=== PATIENT | female | born 1995 | race American Indian/Alaskan Native ===

== ENCOUNTER 2017-03-10 08:49 | Emergency (ER) | payer BC ==
[2017-03-10 09:00] VITALS: BP 103/66
--- NOTE | 2017-03-10 10:21 | Emergency Department Report ---
Entered by ANDRE GOVEA, acting as scribe for CHARLEY JOHNSON PA. ED Lower Extremity HPI - General Chief Complaint: Extremity Injury, Lower Stated Complaint: LT KINEE PAIN/SOB Source: patient Mode of arrival: Ambulatory Limitations: No Limitations - History of Present Illness Initial Comments: 22 year old female with no significant PMHx presents to the ED c/o left knee pain that began last night. Patient states that she felt her knee pop out place last night, and she woke up this morning with left knee soreness. Rates pain a 6 /10. Pain worsens with bending the knee. She reports taking Tylenol Extra Strength x 2 yesterday with mild relief. Associated symptom include swelling, but she denies numbness, tingling, fever, and chills. Reports swelling improved with applying ice packs. Notes that she was diagnosed with chronic left knee pain and received physical therapy for a while. In the ED, the patient also c/o a red area on right arm that could possible be an insect bite and a cough. Patient states that she woke up this morning. with an erythematous area on her right arm. Notes that she's had a cough for 4 days with no sputum present. Associated symptoms include SOB, but denies chest pain, nausea, vomiting, any weakness, and headache. Notes that she was diagnosed with bronchitis in the past. She states she did not visit her PCP Dr. Nuñez, because this ED was closer. LMP 02/09/2017. NKDA. BRYANT Complaint: knee injury (left) -: Last night Injury: Knee: Left Place: home Severity: moderate Severity scale (0 -10): 6 Improves With: immobilization, other (Tylenol Extra Strength) Worsens With: other (bending knee) Associated Symptoms: snap/pop sensation, swelling (currently no swelling), ambulatory. denies: numbness, tingling, other (fever and chills, but reports cough with no sputum) Treatments Prior to Arrival: other (Tylenol Extra Strength last night and ice packs) - Related Data Previous Rx's Medication Instructions Recorded Last Taken Type Acetamin/Codeine 120-12Mg/5 ml 5 ml PO BID PRN #10 dose 01/18/15 Unknown Rx [Tylenol/Codeine] Penicillin Vk [Veetids TAB] 500 mg PO BID #20 tablet 01/18/15 Unknown Rx Benzonatate [Tessalon Perles] 100 mg PO Q8HR #15 capsule 03/10/17 Unknown Rx Cephalexin [Keflex] 500 mg PO QID #40 capsule 03/10/17 Unknown Rx Ibuprofen [Motrin] 800 mg PO Q8HR PRN #30 tablet 03/10/17 Unknown Rx Allergies Allergy/AdvReac Type Severity Reaction Status Date / Time No Known Allergies Allergy Verified 01/18/15 15:16 ED Review of Systems Comment: All other systems reviewed and negative Constitutional: denies: chills, fever, other (tingling) ENT: denies: throat pain Respiratory: cough (with no sputum), shortness of breath. denies: orthopnea, SOB with exertion, SOB at rest Cardiovascular: denies: chest pain, orthopnea Musculoskeletal: joint swelling (no current swelling), other (left knee pain) Skin: other (right arm erythema). denies: rash Neurological: denies: numbness ED Past Medical Hx - Past Medical History Previous Medical History?: No - Surgical History Past Surgical History?: No - Social History Smoking Status: Current Every Day Smoker Substance Use Type: Alcohol - Medications Home Medications: Home Medications Medication Instructions Recorded Confirmed Last Taken Type Acetamin/Codeine 120-12Mg/5 ml 5 ml PO BID PRN #10 dose 01/18/15 Unknown Rx [Tylenol/Codeine] Penicillin Vk [Veetids TAB] 500 mg PO BID #20 tablet 01/18/15 Unknown Rx Benzonatate [Tessalon Perles] 100 mg PO Q8HR #15 capsule 03/10/17 Unknown Rx Cephalexin [Keflex] 500 mg PO QID #40 capsule 03/10/17 Unknown Rx Ibuprofen [Motrin] 800 mg PO Q8HR PRN #30 tablet 03/10/17 Unknown Rx ED Physical Exam - General Limitations: No Limitations General appearance: alert, in no apparent distress - Head Head exam: Present: atraumatic, normocephalic - Eye Eye exam: Present: normal appearance, EOMI Pupils: Present: normal accommodation - ENT ENT exam: Present: normal exam, mucous membranes moist - Neck Neck exam: Present: normal inspection, full ROM. Absent: tenderness, lymphadenopathy - Respiratory Respiratory exam: Present: normal lung sounds bilaterally. Absent: respiratory distress, wheezes, rales, rhonchi, stridor - Cardiovascular Cardiovascular Exam: Present: regular rate, normal rhythm. Absent: systolic murmur, diastolic murmur, rubs, gallop - Extremities Exam Extremities exam: Present: normal inspection, normal capillary refill. Absent: pedal edema, joint swelling (left knee) - Expanded Upper Extremity Exam Right Forearm Wrist exam: Present: tenderness, swelling, erythema Hand Wrist exam: Present: normal inspection - Expanded Lower Extremity Exam Left Hip exam: Present: normal inspection, full ROM Upper Leg exam: Present: normal inspection, full ROM Knee exam: Present: normal inspection. Absent: full ROM (limited due to left knee pain), tenderness, swelling, abrasion, ecchymosis, deformity, dislocation, erythema Lower Leg exam: Present: normal inspection, full ROM Ankle exam: Present: normal inspection, full ROM Foot/Toe exam: Present: normal inspection, full ROM Neuro vascular tendon exam: Present: no vascular compromise. Absent: pulse deficit, abnormal cap refill, motor deficit, sensory deficit, tendon deficit, pallor Gait: Positive: observed and normal - Back Exam Back exam: Present: normal inspection, full ROM - Neurological Exam Neurological exam: Present: alert, oriented X3 - Psychiatric Psychiatric exam: Present: normal affect, normal mood - Skin Skin exam: Present: warm, dry, intact. Absent: rash, erythema (left knee), ecchymosis, other (left knee edema, but right arm erythema that is warm to touch is present) ED Course Vital Signs 03/10/17 08:52 Temperature 98.5 F Pulse Rate 86 Respiratory 16 Rate Blood Pressure 103/66 O2 Sat by Pulse 99 Oximetry ED Lower Extremity MDM - Medical Decision Making Patient was evaluated in fast track area of ED by this provider. Patient presented with left knee pain that began last night. Patient is in no acute distress at this time and will be discharged home. Patient instructed to continue take Tylenol and Motrin for pain. She is instructed to follow up with PCP and a physical therapist if patient's symptoms persist. She will be prescribed an antibiotic for erythematous area on right arm. ED Disposition Clinical Impression: Chronic pain of left knee, Cough, Cellulitis of right arm Disposition: DISCHARGED TO HOME OR SELFCARE Is pt being admited?: No Does the pt Need Aspirin: No Instructions: Cellulitis (ED) Additional Instructions: Please take antibiotics as prescribed for your cellulitis of her right forearm. Courtney Birdes for your cough. Motrin for your pain in your knee. Follow- up with orthopedics in internal medicine provider. Prescriptions: Benzonatate [Tessalon Perles] 100 mg PO Q8HR #15 capsule Cephalexin [Keflex] 500 mg PO QID #40 capsule Ibuprofen [Motrin] 800 mg PO Q8HR PRN #30 tablet PRN Reason: Pain Referrals: PRIMARY CAREMD [Primary Care Provider] - 3-5 Days ERMA AGUILLON MD [Staff Physician] - 3-5 Days HORACIO VOGEL MD [Staff Physician] - 3-5 Days Forms: Work/School Release Form(ED) This documentation as recorded by the XUAN frost JASMINE,accurately reflects the service I personally performed and the decisions made by , CHARLEY JOHNSON PA.
== END 2017-03-10 10:30 | disposition home or self-care (01) ==
LOC: ED 08:49
DX: M25.562 Pain in left knee (principal); G89.29 Other chronic pain; L03.113 Cellulitis of right upper limb; R05 Cough; F17.200 Nicotine dependence, unspecified, uncomplicated
CPT/HCPCS: 99282

== ENCOUNTER 2019-09-14 08:54 | Emergency (ER) | payer SELFPAY ==
--- NOTE | 2019-09-14 09:33 | Emergency Department Report ---
ED Seizure HPI - General Chief Complaint: Seizure Stated Complaint: SEIZURE Time Seen by Provider: 09/14/19 09:16 Source: patient Mode of arrival: Ambulatory Limitations: No Limitations - History of Present Illness Initial Comments: 24-year-old -[place] female patient without significant past medical history presents today with complaints of a seizure and headache last night. Patient denies being diagnosed with seizures in the past, however states that she believes she had a seizure about one year ago and her aunt who is a nurse informed her that it was a seizure. Patient states she was sitting with friends when suddenly she felt weak and her body became numb. She states she then loss consciousness and woke up on the floor. She reports her friends informed her that she was shaking and unresponsive to their voices. Patient states she does not recall anything during the period of unconsciousness. She denies any tongue biting or loss of bladder or bowel control. Patient admits to fatigue and weakness for the remainder of the night. She denies any current weakness, numbness/tingling, vision changes, dizziness, chest pain, shortness of breath, neck pain, fever/chills. Patient states her head is tender to touch in the area that hit the floor on the left side. She admits to use of marijuana, but denies any other drug use. Description of Episode: loss of consciousness Witnessed:: Yes Trauma: Yes (head injury ) Place: street/outdoors Possible Precipitating Event: none Treatments Prior to Arrival: none - Related Data Previous Rx's Medication Instructions Recorded Last Taken Type Acetamin/Codeine 120-12Mg/5 ml 5 ml PO BID PRN #10 dose 01/18/15 Unknown Rx [Tylenol/Codeine] Penicillin Vk [Veetids TAB] 500 mg PO BID #20 tablet 01/18/15 Unknown Rx Benzonatate [Tessalon Perles] 100 mg PO Q8HR #15 capsule 03/10/17 Unknown Rx Cephalexin [Keflex] 500 mg PO QID #40 capsule 03/10/17 Unknown Rx Ibuprofen [Motrin] 800 mg PO Q8HR PRN #30 tablet 03/10/17 Unknown Rx Allergies Allergy/AdvReac Type Severity Reaction Status Date / Time No Known Allergies Allergy Verified 09/14/19 08:59 ED Review of Systems ROS: Stated complaint: SEIZURE Other details as noted in HPI Constitutional: denies: chills, fever Eyes: denies: eye pain, vision change ENT: denies: hearing loss Respiratory: denies: cough, orthopnea, shortness of breath, SOB at rest Cardiovascular: denies: chest pain, palpitations, dyspnea on exertion, edema Endocrine: denies: excessive sweating, flushing Gastrointestinal: denies: abdominal pain, nausea, vomiting, diarrhea, hematemesis, hematochezia Genitourinary: denies: dysuria, frequency, hematuria Musculoskeletal: denies: back pain, joint swelling, arthralgia Skin: denies: rash, lesions Neurological: as per HPI Psychiatric: denies: auditory hallucinations, visual hallucinations Hematological/Lymphatic: denies: easy bleeding ED Past Medical Hx - Past Medical History Previous Medical History?: Yes Hx Seizures: Yes - Surgical History Past Surgical History?: No - Social History Smoking Status: Never Smoker Substance Use Type: Alcohol, Marijuana - Medications Home Medications: Home Medications Medication Instructions Recorded Confirmed Last Taken Type Acetamin/Codeine 120-12Mg/5 ml 5 ml PO BID PRN #10 dose 01/18/15 Unknown Rx [Tylenol/Codeine] Penicillin Vk [Veetids TAB] 500 mg PO BID #20 tablet 01/18/15 Unknown Rx Benzonatate [Tessalon Perles] 100 mg PO Q8HR #15 capsule 03/10/17 Unknown Rx Cephalexin [Keflex] 500 mg PO QID #40 capsule 03/10/17 Unknown Rx Ibuprofen [Motrin] 800 mg PO Q8HR PRN #30 tablet 03/10/17 Unknown Rx ED Physical Exam - General Limitations: No Limitations General appearance: alert, in no apparent distress - Head Head exam: Present: normocephalic, other (left sided tenderness to palpation with minimal swelling noted. No laceration noted) - Eye Eye exam: Present: normal appearance, PERRL, EOMI - ENT ENT exam: Present: mucous membranes moist - Neck Neck exam: Present: normal inspection. Absent: tenderness, lymphadenopathy - Respiratory Respiratory exam: Present: normal lung sounds bilaterally. Absent: respiratory distress, wheezes, rales, rhonchi - Cardiovascular Cardiovascular Exam: Present: regular rate, normal rhythm, normal heart sounds. Absent: tachycardia, systolic murmur, diastolic murmur, rubs, gallop - GI/Abdominal GI/Abdominal exam: Present: soft, normal bowel sounds. Absent: distended, tenderness - Rectal Rectal exam: Present: deferred - Extremities Exam Extremities exam: Present: normal inspection. Absent: pedal edema, joint swelling - Back Exam Back exam: Present: normal inspection. Absent: tenderness - Neurological Exam Neurological exam: Present: alert, oriented X3, CN II-XII intact. Absent: abnormal gait, motor sensory deficit - Expanded Neurological Exam Expanded Cranial nerves: EOM's Intact: Normal, Gag Reflex: Normal, Tongue Deviation: Normal, Facial Sensation: Normal Cerebellar function: Finger to Nose: Normal, Heel to Bernal: Normal, Romberg: Normal Upper motor neuron: Pronator Drift: Normal Sensory exam: Upper Extremity Light Touch: Normal, Lower Extremity Light Touch: Normal Motor strength exam: RUE: 5, LUE: 5, RLE: 5, LLE: 5 Best Eye Response ([place]): (4) open spontaneously Best Motor Response ([place]): (6) obeys commands Best Verbal Response ([place]): (5) oriented Onel Total: 15 - Psychiatric Psychiatric exam: Present: normal affect, normal mood - Skin Skin exam: Present: warm, dry, intact, normal color. Absent: rash ED Course Vital Signs 09/14/19 09/14/19 09/14/19 08:57 10:14 11:16 Temperature 98.1 F Pulse Rate 74 72 Respiratory 14 Rate Blood Pressure 101/69 99/62 [Left] O2 Sat by Pulse 99 Oximetry 09/14/19 11:40 Temperature Pulse Rate 70 Respiratory 14 Rate Blood Pressure 102/60 [Left] O2 Sat by Pulse 99 Oximetry ED Medical Decision Making - Lab Data Result diagrams: 09/14/19 09:20 09/14/19 09:20 Lab Results 09/14/19 09/14/19 09/14/19 Range/Units 09:20 09:20 09:36 WBC 6.7 (4.5-11.0) K/mm3 RBC 4.87 (3.65-5.03) M/mm3 Hgb 14.9 H (10.1-14.3) gm/dl Hct 44.9 H (30.3-42.9) % MCV 92 (79-97) fl MCH 31 (28-32) pg MCHC 33 (30-34) % RDW 13.9 (13.2-15.2) % Plt Count 171 (140-440) K/mm3 Sodium 137 (137-145) mmol/L Potassium 4.5 (3.6-5.0) mmol/L Chloride 102.1 (98-107) mmol/L Carbon Dioxide 23 (22-30) mmol/L Anion Gap 16 mmol/L BUN 12 (7-17) mg/dL Creatinine 0.6 L (0.7-1.2) mg/dL Estimated GFR > 60 ml/min BUN/Creatinine Ratio 20 % Glucose 86 (65-100) mg/dL Calcium 9.4 (8.4-10.2) mg/dL Magnesium 1.80 (1.7-2.3) mg/dL Urine HCG, Qual (Negative) Urine Opiates Screen Urine Methadone Screen Ur Barbiturates Screen Ur Phencyclidine Scrn Ur Amphetamines Screen U Benzodiazepines Scrn Urine Cocaine Screen U Marijuana (THC) Screen Drugs of Abuse Note 09/14/19 09/14/19 Range/Units 09:58 09:58 WBC (4.5-11.0) K/mm3 RBC (3.65-5.03) M/mm3 Hgb (10.1-14.3) gm/dl Hct (30.3-42.9) % MCV (79-97) fl MCH (28-32) pg MCHC (30-34) % RDW (13.2-15.2) % Plt Count (140-440) K/mm3 Sodium (137-145) mmol/L Potassium (3.6-5.0) mmol/L Chloride (98-107) mmol/L Carbon Dioxide (22-30) mmol/L Anion Gap mmol/L BUN (7-17) mg/dL Creatinine (0.7-1.2) mg/dL Estimated GFR ml/min BUN/Creatinine Ratio % Glucose (65-100) mg/dL Calcium (8.4-10.2) mg/dL Magnesium (1.7-2.3) mg/dL Urine HCG, Qual Negative (Negative) Urine Opiates Screen Presumptive negative Urine Methadone Screen Presumptive negative Ur Barbiturates Screen Presumptive negative Ur Phencyclidine Scrn Presumptive negative Ur Amphetamines Screen Presumptive negative U Benzodiazepines Scrn Presumptive negative Urine Cocaine Screen Presumptive negative U Marijuana (THC) Screen Presumptive positive Drugs of Abuse Note Disclamer - Radiology Data Radiology results: report reviewed CT head without contrast INDICATION : headache after head injury. Seizure today TECHNIQUE: Axial imaging performed from the skull apex through the skull base without the use of contrast. All CT scans at this location are performed using CT dose reduction for ALARA by means of automated exposure control. COMPARISON: None FINDINGS: Parenchyma: No acute intracranial hemorrhage or parenchymal abnormality. Ventricles: Ventricles are normal in size and appear symmetric. Soft tissues: Soft tissues including the orbits appear normal. Bones: No acute osseous abnormality. Sinuses: Sinuses and mastoid air cells are clear. IMPRESSION: No acute abnormality. - Medical Decision Making 24-year-old female patient here for possible seizure last night and head pain. Denies actual headache just states pain on left side of head where her head hit the floor. No previous diagnosis of seizures per patient, however states she may have had a seizure one year ago. CT head WNL. Labs WNL TSH still pendingpatient states she does not wish to stay for this (called the lab for the results and they state there is something wrong with the TSH machine and that it could be hours before the TSH results are back). Neuro exam WNL. Recommend follow-up with a neurologist for further evaluation within the next 2- 3 days. Patient instructed to refrain from driving or operating heavy machinery for 6 months or until cleared by a neurologist. So discussed in detail with patient strict return precautions. Patient states understanding Critical care attestation.: If time is entered above; I have spent that time in minutes in the direct care of this critically ill patient, excluding procedure time. ED Disposition Clinical Impression: Seizure-like activity Disposition: DC-01 TO HOME OR SELFCARE Is pt being admited?: No Condition: Stable Instructions: New-Onset Seizure in Adults (ED) Additional Instructions: Do not drive or operate heavy machinery for 6 months or until cleared by a neurologist Referrals: DIANA LAKE MD [Staff Physician] - 2-3 Days
[2019-09-14 09:36] LABS: Hematocrit 44.9 % (30.3-42.9); Hemoglobin 14.9 gm/dl (10.1-14.3); Mean Corpuscular HGB Conc 33 % (30-34); Mean Corpuscular Volume 92 fl (79-97); Platelet Count 171 K/mm3 (140-440); Red Blood Count 4.87 M/mm3 (3.65-5.03); Red Cell Distribution Width 13.9 % (13.2-15.2)
[2019-09-14 09:54] LABS: BUN/Creatinine Ratio 20; Blood Urea Nitrogen 12 mg/dL (7-17); Calcium 9.4 mg/dL (8.4-10.2); Hemolysis Index 11
[2019-09-14 10:21] LABS: HCG Qualitative,Urine Negative (Negative)
[2019-09-14 10:31] LABS: Amphetamine Screen,Urine PRESUMPTIVE NEGATIVE; Benzodiazepines Screen,Urine PRESUMPTIVE NEGATIVE; Cocaine Screen,Urine PRESUMPTIVE NEGATIVE; Methadone Screen,Urine PRESUMPTIVE NEGATIVE; Opiate Screen,Urine PRESUMPTIVE NEGATIVE
[2019-09-14 10:52] LABS: Cannabinoid Screen,Urine PRESUMPTIVE POSITIVE
--- NOTE | 2019-09-14 10:59 | Cat Scan Report ---
CT head without contrast INDICATION : headache after head injury. Seizure today TECHNIQUE: Axial imaging performed from the skull apex through the skull base without the use of con trast. All CT scans at this location are performed using CT dose reduction for ALARA by means of aut omated exposure control. COMPARISON: None FINDINGS: Parenchyma: No acute intracranial hemorrhage or parenchymal abnormality. Ventricles: Ventricles are normal in size and appear symmetric. Soft tissues: Soft tissues including the orbits appear normal. Bones: No acute osseous abnormality. Sinuses: Sinuses and mastoid air cells are clear. IMPRESSION: No acute abnormality. Signer Name: Akil Mei MD Signed: 09/14/2019 10:55 AM Workstation Name: [id number]
[2019-09-14 11:41] VITALS: BP 102/60
== END 2019-09-14 11:49 | disposition home or self-care (01) ==
LOC: ED 08:54
DX: R56.9 Unspecified convulsions (principal); R51 Headache; F12.10 Cannabis abuse, uncomplicated
CPT/HCPCS: 36415; 70450; 80048; 80307; 81025; 83735; 84443; 85027; 93005; 93010